=== PATIENT | female | born 1990 | race Caucasian/White ===

== ENCOUNTER 2017-12-07 16:55 | Emergency (ER) | payer MEDICAID ==
[~2017-12-07] VITALS: Ht 157.5 cm; Wt 97.7 kg
[~2017-12-07 16:55] MED LIST: CYCL-1 PO; HYDR-569 PO
[2017-12-07] MEDS ORDERED: albuterol 2.5 MG/3 ML nebule NEB ONE (18:00)
[2017-12-07] MEDS ORDERED: methylPREDNISolone sod succ 125mg/2ml vial IM ONE (18:00)
[2017-12-07 18:55] VITALS: BP 129/67
== END 2017-12-07 18:57 | disposition home or self-care (01) ==
LOC: ER 16:55
DX: J45.909 Unspecified asthma, uncomplicated (principal); Z79.899 Other long term (current) drug therapy
CPT/HCPCS: 93005; 94640; 94760; 96372; 99283; J2930

== ENCOUNTER 2018-04-06 17:59 | Emergency (ER) | payer MEDICAID, OTHER ==
[~2018-04-06] VITALS: Ht 157.5 cm; Wt 102.7 kg
[~2018-04-06 17:59] MED LIST changes: +HYDR-4383 PO; -HYDR-569 PO
[2018-04-06 20:55] VITALS: BP 109/56
== END 2018-04-06 21:53 | disposition home or self-care (01) ==
LOC: ER 17:59
DX: S50.12XA Contusion of left forearm, initial encounter (principal); X58.XXXA Exposure to other specified factors, initial encounter; Y93.89 Activity, other specified; Y92.89 Other specified places as the place of occurrence of the external cause; Y99.9 Unspecified external cause status
CPT/HCPCS: 93971; 99284

== ENCOUNTER 2019-01-30 18:58 | Emergency (ER) | payer MEDICAID ==
[~2019-01-30] VITALS: Ht 157.5 cm; Wt 93.0 kg
--- NOTE | 2019-01-30 19:15 | NUR ---
The patient ambulated to bed 20 from the ER. She was accompanied by TAMY Mccann. Patient has been oriented to the unit and placed in Green scrubs. Awaiting the MD to come see her.
[2019-01-30] MEDS ORDERED: HYDR-3686 PO (20:02)
[2019-01-30] MEDS ORDERED: CLON0.5T4 PO (20:02)
[2019-01-30] MEDS ORDERED: MONT10TA24 PO (20:02)
--- NOTE | 2019-01-30 20:18 | NUR ---
MD Rossi with patient.
[2019-01-30] MEDS ORDERED: hydrOXYzine 25 MG tablet PO PRN (20:30)
[2019-01-30] MEDS ORDERED: clonazePAM 0.5mg tablet PO PRN (20:30)
[2019-01-30 20:45] LABS: URINE HCG NEGATIVE (NEG)
[2019-01-30 20:54] LABS: URINE AMPHETAMINE SCREEN NEGATIVE (Neg); URINE BARBITUATE SCREEN NEGATIVE (Neg); URINE BENZODIAZEPINES SCREEN NEGATIVE (Neg); URINE CANNABINOID SCREEN POSITIVE (Neg); URINE COCAINE SCREEN NEGATIVE (Neg); URINE METHADONE SCREEN NEGATIVE (Neg); URINE OPIATE SCREEN NEGATIVE (Neg); URINE PHENCYCLIDINE SCREEN NEGATIVE (Neg)
[2019-01-30 20:57] LABS: BASOPHILS % (AUTO) 0.4 % (0-1); EOSINOPHILS % (AUTO) 0.1 % (0-6); HEMATOCRIT 43.9 % (35.0-45.0); HEMOGLOBIN 14.9 g/dl (12.0-16.0); LYMPHOCYTES # (AUTO) 1.7 X10'3 (1.1-4.8); LYMPHOCYTES % (AUTO) 18.4 % (21-51); MEAN CORPUSCULAR HEMOGLOBIN 31.9 PG (27.0-31.0); MEAN CORPUSCULAR HGB CONC 33.9 g/dL (33.0-36.5); MEAN PLATELET VOLUME 6.6 FL (7.4-10.4); MONOCYTES # (AUTO) 0.4 X10'3 (0-0.9); NEUTROPHILS # (AUTO) 7.1 X10'3 (1.8-7.7); NEUTROPHILS % (AUTO) 77.1 % (42-75); PLATELET COUNT 291 X10'3 (140-440); RED BLOOD COUNT 4.67 X10'6 (4.20-5.60); RED CELL DISTRIBUTION WIDTH 13.2 % (11.5-14.5); WHITE BLOOD COUNT 9.2 X10'3 (4.5-11.0)
[2019-01-30 21:16] LABS: ALANINE AMINOTRANSFERASE 25 U/L (12-78); ALBUMIN 3.7 G/DL (3.4-5.0); ALKALINE PHOSPHATASE 66 IU/L (46-116); ANION GAP 9 (8-16); ASPARTATE AMINO TRANSFERASE 15 U/L (10-37); BILIRUBIN,TOTAL 0.9 MG/DL (0.1-1.0); BLOOD UREA NITROGEN 11 MG/DL (7-18); BUN/CREATININE RATIO 14.3 (6.6-38.0); CHLORIDE 104 MMOL/L (99-107); CREATININE 0.77 MG/DL (0.40-0.90); GLUCOSE 87 MG/DL (70-104); POTASSIUM 4.2 MMOL/L (3.5-5.1); SODIUM 141 MMOL/L (135-145); TOTAL CARBON DIOXIDE 28.2 MMOL/L (24-32); TOTAL PROTEIN 7.5 G/DL (6.4-8.2); eGFR 89 ML/MIN
[2019-01-30 21:19] LABS: ETHANOL < 0.010 GM/DL (0.0-0.010)
--- NOTE | 2019-01-30 21:26 | NUR ---
pt appears to be sleeping, lying on her right side with blankets covering to her shouders. RR 14 and unlabored. Sitter and RN within view of Pt aat.
--- NOTE | 2019-01-30 22:13 | NUR ---
Packet sent to [facility]. Confirmed receipt of packet with Dorcas DAVIS office.
--- NOTE | 2019-01-31 01:09 | NUR ---
The patient is sleeping in supine position. Resp unlabored. No s/s of distress.
--- NOTE | 2019-01-31 02:56 | NUR ---
PT ASLEEP , LYING ON HER BACK WITH BLANKETS COVERING TO HER SHOUDERS. RR 14 AND UNLABORED. SITTER AND RN WITHIN VIEW OF PT AAT.
--- NOTE | 2019-01-31 04:06 | NUR ---
The patient is asleep on her right side.
--- NOTE | 2019-01-31 06:39 | NUR ---
Patient sleeping on left side. No restlessness observed. Continue to monitor.
[2019-01-31] MEDS ORDERED: montelukast 10mg tablet PO SCH (08:00)
--- NOTE | 2019-01-31 08:15 | NUR ---
Patient picking at her food. Continue to monitor.
--- NOTE | 2019-01-31 08:30 | NUR ---
FAREED Tran evaluating patient. Continue to monitor.
--- NOTE | 2019-01-31 10:10 | NUR ---
Patient's parent's at bedside. Patient appears slightly anxious. Continue to monitor.
[2019-01-31 10:44] LABS: CLARITY,URINE SLIGHTLY CLOUDY (Clear); COLOR,URINE STRAW (Yellow); GLUCOSE, URINE NEGATIVE (Neg); KETONES,URINE TRACE mg/dl (Neg); LEUKOCYTE ESTERASE ,URINE NEGATIVE (Neg); NITRITES, URINE NEGATIVE (Neg); OCCULT BLOOD,URINE NEGATIVE (Neg); PROTEIN,URINE NEGATIVE (Neg); UROBILINOGEN,URINE 0.2 E.U/dL (0.2-1.0)
[2019-01-31 10:45] LABS: UA COLLECTION TYPE CLN CATCH MIDSTREAM
[2019-01-31 10:50] LABS: MUCUS STRANDS FEW /LPF (Neg); SQUAMOUS EPITHELIAL CELL,UR MANY /LPF (FEW)
--- NOTE | 2019-01-31 10:50 | NUR ---
Patient tearful after parent's left. Continue to monitor.
[2019-01-31 10:51] LABS: BACTERIA,URINE 1+ /HPF (Neg); RBC,URINE 0-2 /HPF (0-2); WBC,URINE 0-4 /HPF (0-4)
--- NOTE | 2019-01-31 12:10 | NUR ---
Patient sleeping. No distress observed. Continue to monitor.
--- NOTE | 2019-01-31 14:00 | NUR ---
Patient awake, alert, no distress observed. Continue to monitor.
--- NOTE | 2019-01-31 16:10 | NUR ---
Patient sitting in bed. Awake, alert. No distress observed. Continue to monitor.
[2019-01-31 17:25] VITALS: BP 123/66
--- NOTE | 2019-01-31 18:45 | NUR ---
RCD PT AWAKE IN BED,CALM AND COOPERATIVE.REFUSED DINNER.
--- NOTE | 2019-01-31 20:13 | NUR ---
DCD PT IN STABLE CONDITION.ORIGINAL 5150 GIVEN TO RESTPADD ASSOCIATE DESIGNER.BELONGINGS AND HOME MEDS WITH PT.
== END 2019-01-31 20:13 ==
LOC: ER 18:58
DX: F32.9 Major depressive disorder, single episode, unspecified (principal); S60.812A Abrasion of left wrist, initial encounter; R45.851 Suicidal ideations; F41.9 Anxiety disorder, unspecified; J45.909 Unspecified asthma, uncomplicated; F12.90 Cannabis use, unspecified, uncomplicated; Z87.891 Personal history of nicotine dependence; Z79.899 Other long term (current) drug therapy; X78.8XXA Intentional self-harm by other sharp object, initial encounter; Y93.89 Activity, other specified; Y92.89 Other specified places as the place of occurrence of the external cause; Y99.8 Other external cause status
CPT/HCPCS: 36415; 80053; 80305; 80320; 81001; 81025; 84443; 85025; 99284; 99285

== ENCOUNTER 2020-08-25 08:17 | Emergency (ER) | payer MEDICAID ==
[~2020-08-25] VITALS: Ht 157.5 cm; Wt 106.4 kg
[~2020-08-25 08:17] MED LIST changes: +CLON0.5T4 PO; -CYCL-1 PO; +HYDR-3686 PO; -HYDR-4383 PO; +MONT10TA32 PO
[2020-08-25] MEDS ORDERED: normal saline 1000ML IV soln IVB ONE (08:50)
[2020-08-25 08:57] LABS: CLARITY,URINE SLIGHTLY CLOUDY (Clear); COLOR,URINE YELLOW (Yellow); GLUCOSE, URINE NEGATIVE (Neg); KETONES,URINE NEGATIVE (Neg); LEUKOCYTE ESTERASE ,URINE MODERATE (Neg); NITRITES, URINE NEGATIVE (Neg); OCCULT BLOOD,URINE TRACE-INTACT (Neg); PH,URINE 5.5 (4.8-8.0); PROTEIN,URINE NEGATIVE (Neg); UROBILINOGEN,URINE 0.2 E.U/dL (0.2-1.0)
[2020-08-25 08:58] LABS: URINE HCG NEGATIVE (NEG)
[2020-08-25 08:59] LABS: UA COLLECTION TYPE CLN CATCH MIDSTREAM
[2020-08-25 09:02] LABS: BACTERIA,URINE FEW /HPF (Neg); MUCUS STRANDS FEW /LPF (Neg); RBC,URINE 0-2 /HPF (0-2); SQUAMOUS EPITHELIAL CELL,UR MODERATE /LPF (FEW); WBC,URINE 0-4 /HPF (0-4)
[2020-08-25 09:03] VITALS: BP 104/66
[2020-08-25 09:18] LABS: URINE AMPHETAMINE SCREEN NEGATIVE (Neg); URINE BARBITUATE SCREEN NEGATIVE (Neg); URINE BENZODIAZEPINES SCREEN NEGATIVE (Neg); URINE CANNABINOID SCREEN POSITIVE (Neg); URINE COCAINE SCREEN POSITIVE (Neg); URINE METHADONE SCREEN NEGATIVE (Neg); URINE OPIATE SCREEN NEGATIVE (Neg); URINE PHENCYCLIDINE SCREEN NEGATIVE (Neg)
[2020-08-25 09:22] LABS: BASOPHILS # (AUTO) 0.1 X10'3 (0-0.2); BASOPHILS % (AUTO) 0.6 % (0-1); EOSINOPHILS # (AUTO) 0.1 X10'3 (0-0.9); EOSINOPHILS % (AUTO) 0.7 % (0-6); HEMATOCRIT 45.5 % (35.0-45.0); HEMOGLOBIN 15.6 g/dl (12.0-16.0); LYMPHOCYTES # (AUTO) 1.6 X10'3 (1.1-4.8); MEAN CORPUSCULAR HEMOGLOBIN 33.9 PG (27.0-31.0); MEAN CORPUSCULAR HGB CONC 34.4 g/dL (33.0-36.5); MEAN CORPUSCULAR VOLUME 98.7 FL (78-98); MEAN PLATELET VOLUME 6.5 FL (7.4-10.4); MONOCYTES # (AUTO) 0.3 X10'3 (0-0.9); MONOCYTES % (AUTO) 3.7 % (2-12); NEUTROPHILS # (AUTO) 7.3 X10'3 (1.8-7.7); PLATELET COUNT 252 X10'3 (140-440); RED BLOOD COUNT 4.61 X10'6 (4.20-5.60); RED CELL DISTRIBUTION WIDTH 13.8 % (11.5-14.5); WHITE BLOOD COUNT 9.4 X10'3 (4.5-11.0)
[2020-08-25 09:36] LABS: ALANINE AMINOTRANSFERASE 94 U/L (12-78); ALBUMIN 3.8 G/DL (3.4-5.0); ALKALINE PHOSPHATASE 82 IU/L (46-116); ANION GAP 14 (8-16); ASPARTATE AMINO TRANSFERASE 43 U/L (10-37); BILIRUBIN,TOTAL 0.7 MG/DL (0.1-1.0); BLOOD UREA NITROGEN 5 MG/DL (7-18); BUN/CREATININE RATIO 6.6 (6.6-38.0); CALCIUM 8.3 MG/DL (8.5-10.1); CHLORIDE 105 MMOL/L (99-107); CREATININE 0.76 MG/DL (0.40-0.90); ETHANOL 0.227 GM/DL (0.0-0.010); GLUCOSE 106 MG/DL (70-104); POTASSIUM 3.6 MMOL/L (3.5-5.1); SODIUM 143 MMOL/L (135-145); TOTAL CARBON DIOXIDE 23.8 MMOL/L (24-32); TOTAL PROTEIN 7.5 G/DL (6.4-8.2); eGFR 89 ML/MIN
== END 2020-08-25 10:26 | disposition home or self-care (01) ==
LOC: ER 08:17
DX: R55 Syncope and collapse (principal); F10.129 Alcohol abuse with intoxication, unspecified; F15.10 Other stimulant abuse, uncomplicated; F14.10 Cocaine abuse, uncomplicated; F41.9 Anxiety disorder, unspecified; J45.909 Unspecified asthma, uncomplicated; Y90.9 Presence of alcohol in blood, level not specified
CPT/HCPCS: 36415; 80053; 80305; 80320; 81001; 81025; 85025; 93005; 99284; J7030

== ENCOUNTER 2021-11-28 20:41 | Emergency (ER) | payer MEDICAID ==
[~2021-11-28] VITALS: Ht 157.5 cm; Wt 98.7 kg
[~2021-11-28 20:41] MED LIST changes: +MONT-40 PO; -MONT10TA32 PO
[2021-11-28 21:02] VITALS: BP 133/90
[2021-11-29] MEDS ORDERED: BUDE10.2 INH (00:04)
== END 2021-11-29 00:44 | disposition home or self-care (01) ==
LOC: ER 20:41
DX: J45.901 Unspecified asthma with (acute) exacerbation (principal); F41.9 Anxiety disorder, unspecified; J45.909 Unspecified asthma, uncomplicated; F12.10 Cannabis abuse, uncomplicated; Z79.899 Other long term (current) drug therapy
CPT/HCPCS: 99283